=== PATIENT | female | born 1970 | race Caucasian/White ===

== ENCOUNTER 2022-10-09 06:26 | Emergency (ER) | payer MEDICAID ==
[~2022-10-09] VITALS: Ht 177.8 cm; Wt 56.7 kg
[2022-10-09] MEDS ORDERED: ALBU5SOL7 INH (06:36)
[2022-10-09] MEDS ORDERED: BUTA1CAP43 PO (06:36)
[2022-10-09] MEDS ORDERED: SULFAMETH/TRIMETH 800/160 MG TABLET ONE (06:44)
[2022-10-09] MEDS ORDERED: SULFAMETH/TRIMETH 800/160 MG TABLET PO ONE (06:45)
[2022-10-09] MEDS ORDERED: MUPI22OI2 TP (06:45)
[2022-10-09] MEDS ORDERED: SULF1TAB48 PO (06:45)
[2022-10-09 07:04] VITALS: BP 135/68; TEMP 97.9; O2SAT 100
== END 2022-10-09 07:05 | disposition home or self-care (01) ==
LOC: ER 06:33
DX: L03.116 Cellulitis of left lower limb (principal); G43.909 Migraine, unspecified, not intractable, without status migrainosus; J45.909 Unspecified asthma, uncomplicated; F17.210 Nicotine dependence, cigarettes, uncomplicated; Z88.0 Allergy status to penicillin; Z59.00 Homelessness unspecified; Z79.899 Other long term (current) drug therapy
CPT/HCPCS: A4663